=== PATIENT | male | born 1990 | race African-American/Black ===

== ENCOUNTER 2021-11-13 12:13 | Emergency (ER) | payer OTHER ==
[~2021-11-13] VITALS: Ht 182.9 cm; Wt 147.4 kg
[2021-11-13 12:18] VITALS: TEMP 98.1
[2021-11-13 14:00] VITALS: BP 169/89
== END 2021-11-13 14:00 | disposition home or self-care (01) ==
LOC: ED 12:13
DX: S00.03XA Contusion of scalp, initial encounter (principal); S16.1XXA Strain of muscle, fascia and tendon at neck level, initial encounter; W20.8XXA Other cause of strike by thrown, projected or falling object, initial encounter; Y92.89 Other specified places as the place of occurrence of the external cause
CPT/HCPCS: 99283